=== PATIENT | female | born 1980 | race Two or more races ===

== ENCOUNTER 2024-11-16 23:09 | Emergency (ER) | payer SELFPAY ==
[~2024-11-16] VITALS: Ht 160 cm; Wt 68.0 kg
[2024-11-16 23:32] VITALS: BP 132/94; PULSE 88; RESP 16; O2SAT 98
== END 2024-11-17 02:40 | disposition home or self-care (01) ==
LOC: ER 23:09
DX: F10.129 Alcohol abuse with intoxication, unspecified (principal); Y90.9 Presence of alcohol in blood, level not specified
CPT/HCPCS: 36415; 80320; 99283; G0480